=== PATIENT | female | born 1985 | race Caucasian/White ===

== ENCOUNTER 2022-04-10 02:02 | Emergency (ER) | payer MEDICAID, OTHER ==
[~2022-04-10] VITALS: Ht 157.5 cm; Wt 76.9 kg
[2022-04-10 02:24] VITALS: BP 132/79
== END 2022-04-10 04:58 | disposition left against medical advice (07) ==
LOC: ER 02:09
DX: Z53.21 Procedure and treatment not carried out due to patient leaving prior to being seen by health care provider (principal)
CPT/HCPCS: 81025